=== PATIENT | male | born 1940 | race Caucasian/White ===

== ENCOUNTER 2017-09-16 12:29 | Emergency (ER) ==
[2017-09-16 12:42] VITALS: BP 142/82; TEMP 99.9; BMI 35.5
--- NOTE | 2017-09-16 13:04 | ED.PDOC ---
Medical Screening Exam - General Information Time Seen by Physician*: 13:00 Mode of Arrival: Walk-In Information Source: Patient - History Chief Complaint: Dizziness Stated Complaint: feeling weak, cough Symptoms Are: Still present Timing: Intermittent Severity: Mild - Review Of Systems Constitutional: None CV: Reports: None Respiratory: Reports: None (mild crackles b/l bases) GI: Reports: None : Reports: None Musculoskeletal: Reports: None Neuro: Reports: None - Past Medical History Past Medical History: Previously healthy - Examination Findings Visit Related to : No - Medical Decision Making Emergency Medical Condition: Yes (B/l pneumonia) Physical Exam - Physical Exam Appearance: Obese Ill-appearing: Mild Pain Distress: None Eyes: RAJI, EOMI, Conjunctiva clear ENT: Ears normal, Nose normal, Oropharynx normal Neck: Supple Respiratory: Airway patent, Breath sounds clear, Breath sounds equal, Respirations nonlabored Cardiovascular: Tachycardia GI/: Soft, Nontender, No masses, Bowel sounds normal, No Organomegaly Musculoskeletal: Normal strength, ROM intact, No edema, No calf tenderness Skin: Warm, Dry, Normal color Neurological: Sensation intact, Motor intact, Reflexes intact, Cranial nerves intact, Alert, Oriented Psychiatric: Affect appropriate, Mood appropriate Interpretation - Radiology Interpretation Radiology Results: Positive Xray Comments: mild infiltrate Radiology Interpretation By: Radiologist - Diesel Mechanic Helper Rate: Tachy Ectopy: PACs Re-Evaluation - Re-Evaluation Time of Re-Evaluation: 03:00 Status: Improved Vital Signs Stable: No (HR 120 down from 135) Appearance: NAD Critical Care Note - Critical Care Note Total Time (mins): 0 Course - Course Hematology/Chemistry: 09/16/17 13:20 09/16/17 13:20 Orders, Labs, Meds: Lab Review 09/16/17 09/16/17 09/16/17 13:20 13:20 13:55 WBC 13.97 H RBC 4.12 L Hgb 14.0 Hct 38.3 L MCV 93.0 MCH 34.0 H MCHC 36.6 H RDW Coeff of Dennis 17.2 H Plt Count 173 Immature Gran % (Auto) 0.9 Neut % (Auto) 91.7 Lymph % (Auto) 2.0 L Stan[place] % (Auto) 4.8 Eos % (Auto) 0.5 Baso % (Auto) 0.1 Immature Gran # (Auto) 0.1 Neut # (Auto) 12.8 H Lymph # (Auto) 0.3 L Stan[place] # (Auto) 0.7 Eos # (Auto) 0.1 Baso # (Auto) 0.0 Sodium 137 Potassium 4.2 Chloride 100 Carbon Dioxide 27 Anion Gap 14.2 BUN 15 Creatinine 0.90 Estimated GFR (MDRD) 82.00 BUN/Creatinine Ratio 16.66 Glucose 166 H Calcium 9.6 Total Bilirubin 1.9 H AST 19 ALT 19 Alkaline Phosphatase 55 L Total Protein 7.2 Albumin 3.8 Globulin 3.4 Albumin/Globulin Ratio 1.12 Urine Color Yellow Urine Clarity Clear Urine pH 6.0 Ur Specific [place] 1.020 Urine Protein 1+ Urine Glucose (UA) Negative Urine Ketones 3+ Urine Blood Negative Urine Nitrite Negative Urine Bilirubin 1+ Urine Urobilinogen 4.0 Ur Leukocyte Esterase Negative Ur Squamous Epith Cells Not present Urine Mucus 1+ Orders Category Date Time Status EKG-(ED ONLY) Stat CARDIO 09/16/17 13:11 Completed CBC W/ AUTO DIFF Stat LAB 09/16/17 13:20 Completed CMP [COMPREHENSIVE METABOLIC PANEL] Stat LAB 09/16/17 13:20 Completed URINALYSIS C & S IF INDICATED Stat LAB 09/16/17 13:55 Completed Ceftriaxone Sodium [Rocephin] MEDS 09/16/17 15:52 Discontinued 1 gm .ROUTE .STK-MED ONE Ceftriaxone Sodium [Rocephin] 1 gm MEDS 09/16/17 14:54 Discontinued 0.9 % Sodium Chloride [Sodium Chloride] 50 ml IV ONCE CHEST, 2 VIEWS PA & LAT Stat RADS 09/16/17 13:04 Completed Medications Discontinued Medications Generic Name Dose Route Start Last Admin Trade Name Mackenzie PRN Reason Stop Dose Admin Ceftriaxone Sodium 1 gm/ 50 mls @ 75 mls/hr 09/16/17 14:54 09/16/17 15:39 Sodium Chloride IV 09/16/17 15:33 75 mls/hr ONCE STA Administration Vital Signs: Temp Pulse Resp BP Pulse Ox 09/16/17 12:37 99.9 F H 126 H 16 142/82 H 93 L Departure - Departure Time of Disposition: 16:45 Disposition: HOME SELF-CARE Discharge Problem: Pneumonia of both lower lobes Instructions: Pneumonia (ED) Condition: Good Pt referred to PMD for follow-up: Yes IPMP verified?: No Additional Instructions: cipro 500mg one tablet two times a day until gone. follow up with your doctor tomorrow by phone to schedule appointment. Allergies/Adverse Reactions: Allergies No Known Allergies Allergy (Unverified 09/16/17 12:33) Home Medications: Ambulatory Orders Diltiazem HCl [Cardizem] 180 mg PO DAILY 08/03/14 Ferrous Sulfate 325 mg PO DAILY 08/03/14 Furosemide [Lasix] 40 mg PO PRN PRN 08/03/14 Metformin HCl 2,000 mg PO DAILY 08/03/14 Potassium Chloride [K-Dur] 20 meq PO DAILY 08/03/14 Pravastatin Sodium [Pravachol] 40 mg PO BEDTIME 08/03/14 Valsartan/Hydrochlorothiazide [Diovan Hct 320-25 mg Tablet] 1 tab PO DAILY 08/03 Linagliptin [Tradjenta] 5 mg PO DAILY 09/16/17 Pantoprazole Sodium [Protonix] 20 mg PO DAILY 09/16/17 Trazodone HCl 50 mg PO BEDTIME 09/16/17
--- NOTE | 2017-09-16 13:40 | DI ---
EXAM: Two views of the chest. History: Mild fever. Comparison: Chest radiograph 11/23/2009 Findings: Heart size is normal. Atherosclerotic vascular calcifications. Mild bibasilar subsegment al atelectasis or infiltrate. No appreciable pleural fluid and no pneumothorax. No acute osseous ab normalities. Degenerative disc disease of the thoracic spine. Impression: Mild bibasilar subsegmental atelectasis or pneumonia.
[2017-09-16] MEDS ORDERED: ROCEPHIN 1 GM in SODIUM CHLORIDE 50 ML IV STA (14:54)
[2017-09-16] MEDS ORDERED: ROCEPHIN ONE (15:52)
== END 2017-09-16 16:42 | disposition home or self-care (01) ==
LOC: ED 12:29
DX: J18.1 Lobar pneumonia, unspecified organism (principal); Z79.899 Other long term (current) drug therapy
CPT/HCPCS: 36415; 80053; 81001; 85025; 93005; 93010; 96365; 99283

== ENCOUNTER 2017-11-19 06:47 | Day surgery (SDC) ==
[2017-11-19] MEDS ORDERED: LIDOCAINE 1% 20 ML MDV ID STA (07:32)
[2017-11-19] MEDS ORDERED: VERSED ONE (09:15)
[2017-11-19] MEDS ORDERED: DIPRIVAN 20 ML VIAL IVP ONE (09:15)
[2017-11-19] MEDS ORDERED: LIDOCAINE HCL 2% LUER-JET ONE (09:15)
[2017-11-19 15:23] VITALS: BP 122/62; TEMP 97.2
--- NOTE | 2017-11-20 09:08 | OP ---
INDICATIONS FOR PROCEDURE: 76 year old gentleman presents for colonoscopy exam and has a history of adenomatous polyps with last colonoscopy three years ago. He also has been having some dyspeptic like symptoms. He is scheduled for endoscopy and colonoscopy. MEDICATIONS: SEE ANESTHESIA NOTES. PROCEDURE: 1. ENDOSCOPY, ALLEY BIOPSY, ESOPHAGEAL BIOPSY, SNARE POLYPECTOMY, UKRAINIAN DILATION 2.COLONOSCOPY, SNARE POLYPECTOMY REPORT: The risks, benefits, alternatives and limitations were discussed in detail with the patient. Informed consent was obtained. After adequate sedation was achieved, the video endoscope was introduced in the posterior pharynx and esophagus under direct vision and easily advanced down to the second portion of the duodenum. I then slowly withdrew. The duodenal mucosa appeared unremarkable as did the duodenal bulb. The antrum was unremarkably other than a 6mm slightly raised polyp on the greater curvature. I biopsied this for histological review then I elected to remove the remaining pieces and destroy the polyp tissue with a hot snare using polypectomy technique. I obtained two biopsies from the antrum wall and from the body obtained for H.Pylori testing. The body was unremarkable. On retroflex view of the cardia and fundus were classic fundic type polyps present. The scope was anteflexed and withdrawn back through the esophagus. At the GE junction there was a circumferential stricture causing mild lumen narrowing. I biopsied this for histological review. The remained esophagus appeared unremarkable. I then advised the guidewire down the gastric lumen and I withdrew the scope. Over the guidewire I easily advanced 54 [place] Dilator. The patient tolerated the procedure well with stable vital signs and pulse oximetry throughout. The patient's bed was turned, a digital rectal exam revealed good tone, no masses. The colonoscope was introduced into the rectum and advanced under direct visual guidance to the cecum. The cecum was identified by the appendiceal orifice and IC valve. He has a long redundant colon. To reach the cecum required external pressure especially with lifting the left side of his abdomen. The cecum was clearly identified by the appendiceal orifice and IC Valve. In the cecum there was a small AVM. I then slowly withdrew the scope in circumferential manner and examine the Mucosa quite carefully. I looked on the proximal and distal sides of folds and flexures as best as possible. I was able to retroflex the scope in the right colon and the left colon to increase visualization. In the distal part of the hepatic flexure there is a small 5mm polyp that I removed by snare technique. In the transverse colon there was a 6mm slightly raised polyp that I removed by snare technique. In the proximal rectum there was a 5mm polyp that I removed by snare technique. No other abnormalities were noted including on retroflex view of the anal canal. The prep was good and the withdraw time is 18 minutes and 27 seconds. The patient tolerated this procedure well with stable vital signs and pulse oximetry throughout. IMPRESSION: 1. Small antrum polyp removed as above 2. Benign fundic type polyp present 3. Distal esophageal stricture, dilated as above 4. 3 colonic polyps removed 5. Small cecal AVM RECOMMENDATIONS: 1. Await antrum polyp biopsy results and if there is any evidence of adenomatous tissue I suggest a repeat endoscopy in one year 2. Await H. Pylori if it is positive will initiate treatment 3. Await colon polyp pathology and if everything is benign I would recommend a repeat colonoscopy examination again in 5 years. 4. We will see him back in the office as needed. CC: Dr. Kong MORENO
== END 2017-11-19 10:45 | disposition home or self-care (01) ==
LOC: SURG 06:47
PROVIDERS: ATTEND Internal Medicine Gastroenterology
DX: Z09 Encounter for follow-up examination after completed treatment for conditions other than malignant neoplasm (principal); Z86.010 Personal history of colon polyps; D12.3 Benign neoplasm of transverse colon; K63.5 Polyp of colon; K31.7 Polyp of stomach and duodenum; K22.2 Esophageal obstruction; Q27.33 Arteriovenous malformation of digestive system vessel; R10.13 Epigastric pain
CPT/HCPCS: 87339

== ENCOUNTER 2018-02-22 12:29 | Emergency (ER) ==
[2018-02-22 12:36] VITALS: BP 126/85; TEMP 97.5; BMI 35.2
--- NOTE | 2018-02-22 13:27 | ED.PDOC ---
General ED Provider: Dr. ANTHONY TAYLOR Chief Complaint: Foot Pain/Injury Stated Complaint: RIGHT FOOT PAIN , RIGHT ANKLE PAIN Time Seen by Physician: 12:33 Mode of Arrival: Wheelchair Information Source: Patient Exam Limitations: No limitations Primary Care Provider: ODALIS NDIAYE Nursing and Triage Documentation Reviewed and Agree: Yes Does patient meet sepsis criteria?: No (HAS HISTORY OF POLIO THE INVOLVED FOOT IS ALWAYS NOTED IN PHOTOS) If yes, has appropriate treatment been initiated?: No System Inflammatory Response Syndrome: Not Applicable Sepsis Protocol: For patient's 13 years and over: Temp is 96.8 and below OR 101 and greater Pulse >90 BPM Resp >20/minute Acutely Altered Mental Status Are patient's symptoms suggestive of a new infection, such as: -Pneumonia -Skin, Soft Tissue -Endocarditis -UTI -Bone, Joint Infection -Implantable Device -Acute Abdominal Infection -Wound Infection -Meningitis -Blood Stream Catheter Infection -Unknown Musculoskeletal Complaint Exam - Ankle/Foot Complaint/Exam Location of Injury: Reports: Right, Ankle, Foot Mechanism of Injury: Reports: Trauma (ROLLED ANKLE ) Onset/Duration: 2 DAYS AGO Symptoms Are: Reports: Still present Onset of Pain: Reports: Immediate Initial Severity: Mild Current Severity: Mild Location: Reports: Discrete Character: Reports: Aching Alleviating: Reports: Rest Aggravating: Reports: None Able to Bear Weight: Yes Associated Signs and Symptoms: Reports: Swelling. Denies: Redness, Bruising, Fever, Weakness, Numbness, Tingling Gout Risk Factors: Reports: None Related Surgical History: Reports: None Lower Extremity Findings: Present: Swelling Achilles Tendon Abnormality: Yes Tenderness: Present: Medial malleolus, Lateral malleolus Differential Diagnosis: Closed Fracture Review of Systems - Review Of Systems Constitutional: Reports: No symptoms Eyes: Reports: No symptoms Ears, Nose, Mouth, Throat: Reports: No symptoms Respiratory: Reports: No symptoms Cardiac: Reports: No symptoms GI: Reports: No symptoms : Reports: No symptoms Musculoskeletal: Reports: Joint pain (RIGHT FOOT PAIN) Skin: Reports: No symptoms Neurological: Reports: No symptoms Endocrine: Reports: No symptoms Hematologic/Lymphatic: Reports: No symptoms All Other Systems: Reviewed and Negative Past Medical History - Past Medical History Previously Healthy: No Endocrine: Reports: Dyslipidemia Cardiovascular: Reports: Hypertension Respiratory: Reports: None Hematological: Reports: None Gastrointestinal: Reports: GERD Genitourinary: Reports: None Neuro/Psych: Reports: None Musculoskeletal: Reports: None Cancer: Reports: None - Surgical History General Surgical History: Reports: None - Family History Family History: Reports: None - Social History Smoking Status: Never smoker Hx Substance Use: No Alcohol Screening: None Physical Exam - Physical Exam Appearance: Well-appearing, No pain distress, Well-nourished Eyes: RAJI, EOMI, Conjunctiva clear ENT: Ears normal, Nose normal, Oropharynx normal Respiratory: Airway patent, Breath sounds clear, Breath sounds equal, Respirations nonlabored Cardiovascular: RRR, Pulses normal, No rub, No murmur GI/: Soft, Nontender, No masses, Bowel sounds normal, No Organomegaly Musculoskeletal: Limited ROM (RIGHT ANKLE PAIN) Skin: Warm, Dry, Normal color Neurological: Sensation intact, Motor intact, Reflexes intact, Cranial nerves intact, Alert, Oriented Psychiatric: Affect appropriate, Mood appropriate Interpretation - Radiology Interpretation Radiology Interpretation By: ED Physician Radiology Results: Negative (THIS PT HAS CHRONIC CHANGES DUE TO POLIO OF THE INVOLVED FOOT BUT NO ACUTE FX NOTED) Critical Care Note - Critical Care Note Total Time (mins): 0 Course - Course Orders, Labs, Meds: Orders Category Date Time Status ANKLE, RIGHT MIN 3 VIEWS Stat RADS 02/22/18 13:10 Ordered FOOT, RIGHT 3 VIEWS Stat RADS 02/22/18 13:10 Ordered Vital Signs: Temp Pulse Resp BP Pulse Ox 02/22/18 12:30 97.5 F L 100 H 20 126/85 94 L Departure - Departure Time of Disposition: 13:30 Disposition: HOME SELF-CARE Discharge Problem: Right ankle sprain Qualifiers: Encounter type: initial encounter Involved ligament of ankle: unspecified ligament Qualified Code(s): S93.401A - Sprain of unspecified ligament of right ankle, initial encounter Instructions: Arthralgia (ED) Condition: Good Pt referred to PMD for follow-up: Yes IPMP verified?: No Additional Instructions: Please call your Family Physician as soon as possible to schedule a follow-up appointment. Prescriptions: Hydrocodone/Acetaminophen [[place] 10-325 Tablet] 1 each PO Q8HR #7 tablet Allergies/Adverse Reactions: Allergies No Known Allergies Allergy (Verified 02/22/18 12:37) Home Medications: Ambulatory Orders Furosemide [Lasix] 40 mg PO PRN PRN 08/03/14 Metformin HCl 2,000 mg PO DAILY 08/03/14 Potassium Chloride [K-Dur] 20 meq PO DIRECTED 08/03/14 Pravastatin Sodium [Pravachol] 40 mg PO BEDTIME 08/03/14 Valsartan/Hydrochlorothiazide [Diovan Hct 320-25 mg Tablet] 1 tab PO DAILY 08/03 Linagliptin [Tradjenta] 5 mg PO DAILY 09/16/17 Pantoprazole Sodium [Protonix] 20 mg PO DAILY 09/16/17 Diltiazem HCl [Cardizem Cd] 180 mg PO DAILY 11/13/17 Dulaglutide [Trulicity] 0.75 mg SQ WEEKLY 02/22/18 Hydrocodone/Acetaminophen [[place] 10-325 Tablet] 1 each PO Q8HR #7 tablet Disposition Discussed With: Patient
--- NOTE | 2018-02-22 14:24 | DI ---
EXAM: Right ankle, three view. HISTORY: Pain COMPARISON: None. FINDINGS: Three views of the left ankle were obtained. Alignment is normal. Ankle mortise is unifo rm. No fracture is seen. Moderate soft tissue swelling is seen consistent with ankle sprain. Stem Lead Former ior calcaneus osteophyte enthesiophyte. Arteriosclerotic calcification seen posteriorly IMPRESSION: Alignment is normal without fracture. Moderate soft tissue swelling present consistent with ankle sprain. There is moderate sized exostosis posterior calcaneus
--- NOTE | 2018-02-23 08:49 | DI ---
EXAM: Three views of the right foot. History: Right foot pain. Findings: Atherosclerotic vascular calcifications. Osteopenia. No acute fracture or dislocation. Old healed fracture deformity of the proximal fifth metatarsal shaft. Mild enthesiopathy at the inse rtion of the Achilles tendon. Mild polyarticular joint space narrowing. Impression: No acute osseous abnormality
== END 2018-02-22 13:48 | disposition home or self-care (01) ==
LOC: ED 12:29
DX: S93.401A Sprain of unspecified ligament of right ankle, initial encounter (principal); X50.1XXA Overexertion from prolonged static or awkward postures, initial encounter; Z86.12 Personal history of poliomyelitis
CPT/HCPCS: 99283